=== PATIENT | female | born 1980 | race Caucasian/White ===

== ENCOUNTER 2018-06-29 18:11 | Emergency (ER) | payer OTHER ==
[~2018-06-29] VITALS: Ht 167.6 cm; Wt 113.5 kg
[2018-06-29 18:46] VITALS: BP 110/69
[2018-06-29] MEDS ORDERED: LIDOcaine 1.5% w/epinephrine 1:200,000 5ml ampul IJ ONE (19:35)
== END 2018-06-29 20:47 | disposition home or self-care (01) ==
LOC: ER 18:11
DX: S61.211A Laceration without foreign body of left index finger without damage to nail, initial encounter (principal); Z86.73 Personal history of transient ischemic attack (TIA), and cerebral infarction without residual deficits; Z90.49 Acquired absence of other specified parts of digestive tract; Z98.890 Other specified postprocedural states; Z90.710 Acquired absence of both cervix and uterus; Z88.0 Allergy status to penicillin; W45.8XXA Other foreign body or object entering through skin, initial encounter; Y93.89 Activity, other specified; Y92.89 Other specified places as the place of occurrence of the external cause; Y99.9 Unspecified external cause status
CPT/HCPCS: 12001; 99283; J3490

== ENCOUNTER 2020-02-27 16:01 | Emergency (ER) | payer MEDICAID ==
[~2020-02-27] VITALS: Ht 167.6 cm; Wt 75.9 kg
[2020-02-27 17:05] LABS: BASOPHILS % (AUTO) 0.2 % (0-1); EOSINOPHILS # (AUTO) 0.3 X10'3 (0-0.9); EOSINOPHILS % (AUTO) 3.8 % (0-6); HEMATOCRIT 42.4 % (35.0-45.0); HEMOGLOBIN 14.1 g/dl (12.0-16.0); LYMPHOCYTES # (AUTO) 2.4 X10'3 (1.1-4.8); LYMPHOCYTES % (AUTO) 26.7 % (21-51); MEAN CORPUSCULAR HEMOGLOBIN 29.7 PG (27.0-31.0); MEAN CORPUSCULAR HGB CONC 33.3 g/dL (33.0-36.5); MEAN PLATELET VOLUME 9.5 FL (7.4-10.4); MONOCYTES # (AUTO) 0.6 X10'3 (0-0.9); MONOCYTES % (AUTO) 6.8 % (2-12); NEUTROPHILS # (AUTO) 5.6 X10'3 (1.8-7.7); NEUTROPHILS % (AUTO) 62.5 % (42-75); PLATELET COUNT 303 X10'3 (140-440); RED BLOOD COUNT 4.76 X10'6 (4.20-5.60); RED CELL DISTRIBUTION WIDTH 14.4 % (11.5-14.5); WHITE BLOOD COUNT 8.9 X10'3 (4.5-11.0)
[2020-02-27 17:07] LABS: PARTIAL THROMBOPLASTIN TIME 33 SECONDS (22-32)
[2020-02-27 17:10] LABS: ALANINE AMINOTRANSFERASE 16 U/L (12-78); ALBUMIN 3.9 G/DL (3.4-5.0); ALBUMIN/GLOBULIN RATIO 1.1 (1.1-1.5); ALKALINE PHOSPHATASE 68 IU/L (46-116); ANION GAP 10 (8-16); ASPARTATE AMINO TRANSFERASE 14 U/L (10-37); BILIRUBIN,TOTAL 0.5 MG/DL (0.1-1.0); BLOOD UREA NITROGEN 7 MG/DL (7-18); CALCIUM 9.1 MG/DL (8.5-10.1); CHLORIDE 106 MMOL/L (99-107); CREATININE 0.78 MG/DL (0.40-0.90); GLUCOSE 101 MG/DL (70-104); POTASSIUM 3.6 MMOL/L (3.5-5.1); SODIUM 141 MMOL/L (135-145); TOTAL CARBON DIOXIDE 25.2 MMOL/L (24-32); TOTAL PROTEIN 7.4 G/DL (6.4-8.2); eGFR 82 ML/MIN
--- NOTE | 2020-02-27 17:35 | NUR ---
relieving RN for break, pt has been evaluated by Dr Hamm, waiting for lab results
[2020-02-27] MEDS ORDERED: meclizine 12.5mg tablet PO ONE (17:40)
[2020-02-27] MEDS ORDERED: MECL-159 PO (17:42)
[2020-02-27 18:14] VITALS: BP 104/73
== END 2020-02-27 18:05 | disposition home or self-care (01) ==
LOC: ER 16:02
DX: R42 Dizziness and giddiness (principal); R53.1 Weakness; R05 Cough; R63.0 Anorexia; R79.1 Abnormal coagulation profile; Z86.73 Personal history of transient ischemic attack (TIA), and cerebral infarction without residual deficits; Z90.710 Acquired absence of both cervix and uterus; Z90.49 Acquired absence of other specified parts of digestive tract; Z88.0 Allergy status to penicillin; Z79.899 Other long term (current) drug therapy
CPT/HCPCS: 36415; 71045; 80053; 84443; 84484; 85025; 85610; 85730; 93005; 99285; J8597

== ENCOUNTER 2020-10-18 17:14 | Emergency (ER) | payer MEDICAID ==
[~2020-10-18] VITALS: Ht 167.6 cm; Wt 66.0 kg
[~2020-10-18 17:14] MED LIST: MECL-159 PO
[2020-10-18] MEDS ORDERED: LIDOcaine 1% W/epiNEPHrine 1:200,000 10ml vial IJ ONE (17:40)
[2020-10-18] MEDS ORDERED: TETanus/Pertussis (Acell)/Diphther VAC/PF (Tdap-Adult) 0.5ml syringe IMVAC ONE (17:40)
[2020-10-18] MEDS ORDERED: AMOX-580 PO (18:01)
[2020-10-18 18:20] VITALS: BP 110/71
== END 2020-10-18 18:23 | disposition home or self-care (01) ==
LOC: ER 17:15
DX: S61.412A Laceration without foreign body of left hand, initial encounter (principal); S61.211A Laceration without foreign body of left index finger without damage to nail, initial encounter; Z86.73 Personal history of transient ischemic attack (TIA), and cerebral infarction without residual deficits; Z90.49 Acquired absence of other specified parts of digestive tract; Z98.891 History of uterine scar from previous surgery; Z90.710 Acquired absence of both cervix and uterus; Z20.3 Contact with and (suspected) exposure to rabies; Z88.0 Allergy status to penicillin; Z79.899 Other long term (current) drug therapy; W54.0XXA Bitten by dog, initial encounter; Y93.89 Activity, other specified; Y92.89 Other specified places as the place of occurrence of the external cause; Y99.8 Other external cause status
CPT/HCPCS: 64450; 73120; 90471; 90715; 99284